=== PATIENT | female | born 1965 | race Caucasian/White ===

== ENCOUNTER 2018-02-01 18:52 | Emergency (ER) | payer MEDICAID ==
[~2018-02-01] VITALS: Ht 157.5 cm; Wt 94.8 kg
[2018-02-01 20:20] VITALS: BP 166/107
== END 2018-02-01 20:20 | disposition home or self-care (01) ==
LOC: ED 18:52
DX: J32.9 Chronic sinusitis, unspecified (principal); J45.901 Unspecified asthma with (acute) exacerbation; M54.6 Pain in thoracic spine